=== PATIENT | female | born 1985 | race Caucasian/White ===

== ENCOUNTER → 2018-12-20 07:59 | Outpatient (CLI) | payer OTHER, SELFPAY ==
--- NOTE | 2018-12-20 08:02 | RAD_ITS ---
STUDY: HYSTEROSALPINGOGRAM. REASON FOR EXAM: Female, 33 years old. Infertility. FLUOROSCOPY TIME (if supplied): (1:50) minutes/seconds. 4 spot images were obtained. TECHNIQUE: The customs compliance analyst performed the hysterosalpingogram. COMPARISON: None. FINDINGS: There is evidence of filling of the venous structures within the pelvis. The fallopian tubes are not well opacified. Uterus is unremarkable. RAD/Salpingogram IMPRESSION: Limited study due to the filling of the venous structures as described. A repeat examination is recommended for further evaluation. Electronically Signed: Kam Brooke, at 15:45 EDT , Service support ,
== END ==
PROVIDERS: Family Provider Internal Medicine; PCP Internal Medicine; Referring Provider Obstetrics & Gynecology; Visit Provider Obstetrics & Gynecology
DX: N97.9 Female infertility, unspecified (principal)
CPT/HCPCS: 58340; 74740; Q9967

== ENCOUNTER → 2019-02-26 06:31 | Outpatient (CLI) | payer OTHER, SELFPAY ==
--- NOTE | 2019-02-26 06:43 | MRI_ITS ---
STUDY: MRI BRAIN WITH AND WITHOUT CONTRAST REASON FOR EXAM: Female, 33 years old. Facial pain, tinnitus TECHNIQUE: Standardized multiplanar fat and water weighted pulse sequences were obtained. 15 IV Dotarem was administered for the contrast portion of the examination. COMPARISON: None. FINDINGS: Normal size of the ventricles and extra-axial spaces for the patient's age. Normal white matter tracts of the supratentorial brain. There is no evidence for recent intracranial ischemia or other cause of cytotoxic edema on diffusion weighted imaging (DWI). Normal T2* images of the brain without demonstrated susceptibility artifact. There is no demonstrated hemosiderin stain. Normal bilateral basal ganglia. Normal thalami. There is no extra-axial fluid accumulation. Normal flow voids within the major intracranial circulation suggesting patency by spin echo criteria. Normal venous enhancement. There is no enhancing intra-axial or extra-axial abnormality. Normal sella turcica, pituitary gland, infundibular stalk, optic chiasm and hypothalamus. Normal tectal plate and pineal gland. Normal midbrain, kena and medulla. Normal cerebellum. Normal basal cisterns. Normal bilateral temporal bones. Normal bilateral internal auditory canals. No demonstrated orbital abnormality, within the constraints of a routine brain study. Mucous retention cyst in the posterior left maxilla sinus consistent with chronic sinusitis. Normal calvarium and skull base. Normal visualized soft tissue structures. Normal visualized upper cervical spine. MRI/Brain W/WO Contrast IMPRESSION: Normal unenhanced and enhanced MRI of the brain. Chronic left maxillary sinusitis with mucous retention cyst. Electronically Signed: Alverto Coreas MD at 8:46 EDT Tel , Service support ,
== END ==
PROVIDERS: Family Provider Internal Medicine; PCP Internal Medicine; Referring Provider Otolaryngology Otolaryngology/Facial Plastic Surgery; Visit Provider Otolaryngology Otolaryngology/Facial Plastic Surgery
DX: G50.1 Atypical facial pain (principal); H93.19 Tinnitus, unspecified ear
CPT/HCPCS: 70553; A9575

== ENCOUNTER → 2020-06-01 17:04 | Outpatient (CLI) | payer OTHER, SELFPAY | PROVIDERS: PCP Internal Medicine; Referring Provider Obstetrics & Gynecology; Visit Provider Obstetrics & Gynecology | DX: Z11.59 Encounter for screening for other viral diseases (principal) | CPT/HCPCS: 87635; C9803; U0003 ==

== ENCOUNTER 2020-06-06 18:30 | Inpatient (IN) | payer OTHER, SELFPAY ==
[2020-06-06] VITALS (26 sets, daily range): BP systolic 98–165; BP diastolic 54–84; PULSE 86–118; TEMP 36.4–37.7; O2SAT 98–100; BMI 29.9
[2020-06-06] MEDS: Lactated Ringers 1,000 ML 50 ML IV (19:35)
[2020-06-06 19:57] LABS: Absolute Lymphocyte Count 1.55 X10^3/uL (0.83-4.51); Absolute Neutrophil Count 10.5 X10^3/uL (2.0-7.7); Basophil# 0.02 X10^3/uL; Basophil% 0.2 % (0-1); Eosinophil# 0.04 X10^3/uL; Eosinophils% 0.3 % (0-5); Hematocrit 37.6 % (37-47); Hemoglobin 13.2 g/dL (12.0-15.0); Lymphocyte # 1.55 X10^3/ul (4.0); Lymphocyte % 11.8 % (19-41); Mean Corp Hgb Conc 35.1 g/dL (32-36); Mean Corpuscular Hgb 33.7 pg (27.0-32.0); Mean Corpuscular Volume 95.9 fL (81-99); Mean Platelet Vol. 10.4 fl (6.2-12.0); Monocyte# 0.94 X10^3/uL; Monocyte% 7.2 % (0-10); NRBC Flagged by Analyzer 0 % (0-5); Platelet Count 291 K/mm3 (150-450); RBC Distribution Width CV 12.1 % (11.6-14.6); RBC Distribution Width SD 41.8 fl (35.1-43.9); Red Blood Count 3.92 M/mm3 (4.2-5.4); White Blood Count 13.1 K/mm3 (4.4-11.0)
[2020-06-06] MEDS: Lactated Ringers 500 ML 999 ML IV (20:28)
[2020-06-06] MEDS: fentaNYL-bupivacaine (epidural) 100 ML BAG EPIDURAL (21:35)
[2020-06-07] VITALS (36 sets, daily range): BP systolic 94–137; BP diastolic 55–83; PULSE 79–110; RESP 14–16; TEMP 36.4–37.7; O2SAT 96–99
[2020-06-07] MEDS: Lactated Ringers 1,000 ML 200 ML IV ×2 (00:22→05:40)
[2020-06-07] MEDS: 0.9% Saline Lock 10 ML Syringe IV (01:09)
[2020-06-07] MEDS: Ondansetron 4 MG/2 ML Vial IV (01:09)
[2020-06-07] MEDS: Lactated Ringers 500 ML 999 ML IV ×2 (01:16→05:07)
[2020-06-07] MEDS: fentaNYL-bupivacaine (epidural) 100 ML BAG EPIDURAL ×2 (01:55→06:31)
--- NOTE | 2020-06-07 07:10 | HP.PCM_ITS ---
- Problem List (1) Post-dates Status: Acute (2) Active labor at term Status: Acute (3) History of infertility Status: Acute (4) Hypothyroidism Status: Acute (5) History of anxiety Status: Acute (6) Rh negative state in antepartum period Status: Acute History Date of Admission: 06/06/20 Final DONALD: 05/31/20 Final DONALD Source: US <20 weeks Gestational age: 41 Weeks and 0 Days History of this : This is a 34 year-old, G [1], P [0], at 41 weeks gestational age. Presented for induction of labor but was in active labor upon arrival. Allergies No Known Allergies Allergy (Verified 06/06/20 19:21) Home Medications: Home Medications Levothyroxine [Synthroid] 112 mcg PO DAILY 06/06/20 Vits [Prenatabs FA] 1 tab PO DAILY 06/06/20 Smoking Status: Never smoker Alcohol: None Number of Fetus(es): 1 NST - FHR Rate Baby A Baseline: 145 Variability:: Moderate Accelerations:: 15 x 15 Decelerations:: None FHR Category:: Category I Uterine Activity:: Irregular every 3-6, moderate to strong History Past Pregnancies: Past Pregnancies Delivery Date Name GA/ Weeks Outcome Route Wt Sex Labor Length Anesthesia Delivery Location Provider FOB Labs: Mom's Labs & Results 06/06/20 06/06/20 19:35 19:35 WBC 13.1 H RBC 3.92 L Hgb 13.2 Hct 37.6 MCV 95.9 MCH 33.7 H MCHC 35.1 RDW Std Deviation 41.8 RDW Coeff of Rosalino 12.1 Plt Count 291 MPV 10.4 Immature Gran % (Auto) 0.500 Neut % (Auto) 80.0 H Lymph % (Auto) 11.8 L [place] % (Auto) 7.2 Eos % (Auto) 0.3 Baso % (Auto) 0.2 Absolute Neuts (auto) 10.5 H Absolute Lymphs (auto) 1.55 Nucleated RBC % 0 Blood Type O NEGATIVE Antibody Screen NEGATIVE Course Did the patient receive Yes care? Labs Blood Type: O RH: NEGATIVE RPR/VDRL/Syphilis Nonreactive Rubella status Immune HbSAg Negative Date Done: 11/20/19 Chlamydia Negative Gonorrhea Negative HIV/AIDS Non-Reactive Group B Strep: Negative Current Obstetrical History Gestational Diabetes No Incompetent Cervix No Infertility Yes: letrozole PO IUGR No Macrosomia No Hypertension/Pre-eclampsia No Placenta Previa/Abruption No PTL/PROM No Uterine anomaly No Oligohydramnios No Polyhydramnios No Multiple gestation No Past Medical History Asthma No Diabetes No Hypertension No Heart disease No Mitral valve prolapse No Neurologic/Seizure disorder/ Yes: migraines Migraines Kidney disease No Liver disease No Varicosities No Clotting disorders/Hx of DVT No Thyroid Dysfunction Yes: autoimmune hoshimoto Other medical diseases Yes: PCOS Psychiatric disorders No Major trauma No Abnormal PAP smear No Sleep apnea No Mammogram in the last 2 years No Social History Marital Status: Alleged father Enrique Jefferson Hx Smoking No Smoking Status Never smoker How long have you used denies substances (years)? What date/time did you last N/A use any of the above? Have you had any previous N/A inpatient or outpatient treatment Review of Systems Constitutional: Denies: Chills, Fever, Weight Change HEENT: Denies: Head Aches, Sinus Congestion, Sinus Drainage Cardiovascular: Denies: Chest Pain, Palpitations Respiratory: Denies: Cough, Shortness of breath at rest, Sputum production Gastrointestinal: Denies: Abdominal Pain, Nausea, Vomiting Genitourinary: Denies: Dysuria Musculoskeletal: Denies: Joint Pain, Joint Tenderness Skin: Denies: Rash, Wounds Neurological: Denies: Numbness, Tingling, Focal weakness Psychiatric: Denies: Anxiety, Depression, Homicidal Ideations, Suicidal Ideations Hematologic/ Lymphatic: Denies: Easy Bruising, Easy Bleeding Physical Exam Vitals: Vital Signs Temp Pulse BP Pulse Ox 98.9 F 95 135/78 H 98 06/07/20 06:43 06/07/20 06:42 06/07/20 06:41 06/07/20 06:42 General: Alert, Oriented x3, Cooperative HEENT: Atraumatic, Normocephalic Cardiovascular: Regular rate, Regular Rhythm Lungs: Clear to auscultation Abdomen: Gravid Extremities:: No edema Neurological: Deep Tendon Reflexes 2+/4 and Symmetrical ICT HELP DESK TECHNICIAN: Normal external genitalia Estimated gestational size: Appropriate for gestational size Presentation: Cephalic Cervix Dilation (cm): 5 - IBOW per nursing Assessment/Plan All Active Problems Post-dates (Acute) Active labor at term (Acute) History of infertility (Acute) Hypothyroidism (Acute) History of anxiety (Acute) Rh negative state in antepartum period (Acute) This is a 34 year-old, G [1], P [0], at 41 weeks gestational age. A:Active Labor P: 1) Admit to labor and delivery 2) IV and routine labs 3) Epidural for pain management 4) notified of patient status 5) GBS negative
--- NOTE | 2020-06-07 07:14 | PCM.PN.OB ---
Patient Problems: Active and Suspected Problems Post-dates (Acute) Active labor at term (Acute) History of infertility (Acute) Hypothyroidism (Acute) History of anxiety (Acute) Rh negative state in antepartum period (Acute) Subjective: Comfortable with epidural. Called by nursing staff for late prolonged decelerations with pushing. Repositioned to hands and knees and baby tolerated well. Objective: 135, moderate, variable and late decels, Category 2 with pushing. TOCO:every 3-4 minutes, strong Complete, +2 Pushing on hands and knees and left side, tolerance improved. - Physical Exam Vitals/I&O's: Vital Signs Temp Pulse BP Pulse Ox 98.9 F 95 135/78 H 98 06/07/20 06:43 06/07/20 06:42 06/07/20 06:41 06/07/20 06:42 Weight: 203 lb 0.012 oz Body Mass Index (BMI) 29.9 Intake and Output for Last 24 Hours 06/05/20 06/06/20 06/07/20 23:59 23:59 23:59 Intake Total 543.67 / 543.67 2879.76 / 2879.76 Output Total 50 / 50 650 / 650 Balance 493.67 / 493.67 2229.76 / 2229.76 Laboratory Results 06/06/20 19:35: WBC 13.1 H, RBC 3.92 L, Hgb 13.2, Hct 37.6, MCV 95.9, MCH 33.7 H, MCHC 35.1, RDW Std Deviation 41.8, RDW Coeff of Rosalino 12.1, Plt Count 291, MPV 10.4, Immature Gran % (Auto) 0.500, Neut % (Auto) 80.0 H, Lymph % (Auto) 11.8 L, [place] % (Auto) 7.2, Eos % (Auto) 0.3, Baso % (Auto) 0.2, Absolute Neuts (auto) 10.5 H, Absolute Lymphs (auto) 1.55, Nucleated RBC % 0 06/06/20 19:35: Blood Type O NEGATIVE, Antibody Screen NEGATIVE Current Medications Acetaminophen (Tylenol) 325 - 650 mg PO Q4H PRN PRN PRN Reason: Pain Score 1-3/10 Al Hydroxide/Mg Hydroxide (Mylanta Ii) 15 - 30 ml PO Q4H PRN PRN PRN Reason: INDIGESTION Citric Acid/Sodium Citrate (Bicitra) 30 ml PO X1 PRN PRN Reason: Section Ephedrine Sulfate () 10 mg IV Q10M PRN PRN Reason: hypotension Ephedrine Sulfate () 10 mg IM Q30M PRN PRN Reason: hypotension Fentanyl Citrate (Sublimaze (100mcg Ampule)) 25 - 50 mcg IV Q2H PRN PRN PRN Reason: Pain Score 4-10/10 Fentanyl/Bupivacaine/Sodium Chlor () 0 ml EPIDURAL UD AVEL; Protocol Last Admin: 06/07/20 06:31 Dose: 100 ml Documented by: Lactated Ringer's () 500 mls @ 999 mls/hr IV .Q31M PRN PRN Reason: Epidural Last Infusion: 06/06/20 20:58 Dose: Infused Documented by: Lactated Ringer's () 500 mls @ 999 mls/hr IV .Q31M PRN PRN Reason: Corrective Measures Last Infusion: 06/07/20 05:38 Dose: Infused Documented by: Lactated Ringer's () 1,000 mls @ 50 mls/hr IV .Q20H AVEL Last Infusion: 06/07/20 06:24 Dose: 200 mls/hr Documented by: Naloxone HCl 4 mg/ Dextrose 504 mls @ 0 mls/hr IV .Q0M PRN; Protocol PRN Reason: To maintain Resp. rate >10 Nalbuphine HCl (Nubain) 5 mg IV Q3H PRN PRN PRN Reason: ITCHING Naloxone HCl (Narcan) 0.02 mg IV Q1M PRN PRN Reason: RR< 10 AND PT UNRESPONSIVE Ondansetron HCl (Zofran) 4 mg IV Q4H PRN PRN PRN Reason: NAUSEA Last Admin: 06/07/20 01:09 Dose: 4 mg Documented by: Prochlorperazine Edisylate (Compazine Iv) 10 mg IV Q6H PRN PRN PRN Reason: NAUSEA Sodium Chloride () 10 - 40 ml IV X1 PRN PRN Reason: SALINE FLUSH Last Admin: 06/07/20 01:09 Dose: 10 ml Documented by: Medical Necessity - Tobacco Use Smoking Status: Never smoker Assessment/Plan All Active Problems Post-dates (Acute) Active labor at term (Acute) History of infertility (Acute) Hypothyroidism (Acute) History of anxiety (Acute) Rh negative state in antepartum period (Acute) A:Active labor, second stage Category 2 FHT P: notified of heart rate decelerations and current patient status. Will assist with pushing and determine descent and patient progress.
[2020-06-07] MEDS: Oxytocin 30 units/NS 500 ml 30 UNITS/500 ML IV.SOLN 334 UNITS IV (09:20)
--- NOTE | 2020-06-07 09:36 | PCM.OPRPT ---
Vaginal Delivery Maternal Presentation: Active Labor Amniotic Membrane Rupture Type: Artificial Amniotic Fluid Description: Clear Final DONALD: 05/31/20 Final DONALD Source: US <20 weeks Gestational age: 41 Weeks and 0 Days Date of Procedure: 06/07/20 Pre-Operative Diagnosis: term gestation active labor Post-Operative Diagnosis: same, live female at 0916 Surgery/ Procedure Performed: Vacuum Assisted Vaginal Delivery Type of Anesthesia: Epidural Description of Procedure: pt pushing on and off for over 3.5hours, fetus with decelerations with pushing. discussed with patient and set up for vacuum assisted delivery- risks were reviewed. VE: able to see approximately 2cm head with pushing- vacuum applied at 550mmhg at flexion point. head was brought to perineum with two pulls and one pop off small RML was made for delivery of head- vacuum remained off and patient was able to push well for delivery of head followed by infants shoulders. was placed on maternal chest for immediate skin to skin- vigorous at delivery. RML was repaired with 2-0 vicryl and 3-0 rapide. gasses unable to be collected. placenta delivered without difficulty and intact. Presentation: Vertex Placental Delivery Description: Spontaneous Placenta Disposition: [facility] Cord Vessel Description: 3 Vessels Cord Entanglement: None Drain: Hunt to straight drain Estimated Blood Loss: 200 Infant A gender: Female (1 minute): 8 (5 minute): 9 Episiotomy Description: Right Mediolateral, 2nd degree Laceration: None Medications given after delivery: IV Pitocin Complications: None
[2020-06-07] MEDS: Levothyroxine 112 MCG Tablet PO (10:53)
[2020-06-07] MEDS: Ibuprofen 600 MG Tablet PO ×2 (10:53→16:58)
[2020-06-07] MEDS: Acetaminophen 500 MG Tablet 1000 MG PO (20:55)
[2020-06-08] VITALS (7 sets, daily range): BP systolic 120–132; BP diastolic 69–79; PULSE 73–85; RESP 16–18; TEMP 36.6–36.9; O2SAT 98
[2020-06-08] MEDS: Levothyroxine 112 MCG Tablet 224 MCG PO (06:18)
[2020-06-08] MEDS: Ibuprofen 600 MG Tablet PO ×2 (08:41→22:59)
--- NOTE | 2020-06-08 08:48 | PCM.PN.OB ---
Patient Problems: Active and Suspected Problems Post-dates (Acute) Active labor at term (Acute) History of infertility (Acute) Hypothyroidism (Acute) History of anxiety (Acute) Rh negative state in antepartum period (Acute) Subjective: Feels well but is struggling with - Physical Exam Vitals/I&O's: Vital Signs Temp Pulse Resp BP Pulse Ox 98.1 F 85 16 131/75 H 98 06/08/20 08:19 06/08/20 08:19 06/08/20 08:19 06/08/20 08:19 06/08/20 04:18 Oxygen Delivery Method Room Air Weight: 203 lb 0.012 oz Body Mass Index (BMI) 29.9 Intake and Output for Last 24 Hours 06/06/20 06/07/20 06/08/20 23:59 23:59 23:59 Intake Total 543.67 / 543.67 3966.43 / 3966.43 Output Total 50 / 50 2650 / 2650 Balance 493.67 / 493.67 1316.43 / 1316.43 General: Alert, Oriented x3 Abdomen: Soft, Non Tender, Non-Distended - ff mid & below umb Extremities: No Calf Tenderness Laboratory Results 06/07/20 13:00: Screen NEGATIVE, Baby's Blood Type B POSITIVE, Baby's SALAZAR NEGATIVE Current Medications Acetaminophen (Tylenol) 1,000 mg PO Q8H PRN PRN PRN Reason: Pain Score 1-3/10 Last Admin: 06/07/20 20:55 Dose: 1,000 mg Documented by: Bisacodyl (Dulcolax) 10 mg RECTAL UD PRN PRN Reason: If no BM Dibucaine (Dibucaine) 1 applic TOPICAL TID PRN PRN; Protocol PRN Reason: Discomfort Hydrocortisone (Hytone) 1 applic TOPICAL TID PRN PRN; Protocol PRN Reason: Discomfort Ibuprofen (Motrin) 600 mg PO Q6H PRN PRN PRN Reason: Pain Score 1-3/10 Last Admin: 06/08/20 08:41 Dose: 600 mg Documented by: Levothyroxine Sodium (Synthroid) 112 mcg PO SuMoWeFr@0600 [facility] Last Admin: 06/07/20 10:53 Dose: 112 mcg Documented by: Levothyroxine Sodium (Synthroid) 224 mcg PO TuThSa@0600 [facility] Last Admin: 06/08/20 06:18 Dose: 224 mcg Documented by: Methylergonovine Maleate (Methergine) 0.2 mg IM X1 PRN PRN Reason: Excess bleeding/uterine atony Ondansetron HCl (Zofran) 4 mg IV Q4H PRN PRN PRN Reason: Nausea Oxycodone HCl (Oxyir) 5 - 10 mg PO Q4H PRN PRN PRN Reason: Pain Score 4-10/10 Senna/Docusate Sodium (Senokot-S, Jessica-Colace) 1 - 2 tablet PO DAILY PRN PRN PRN Reason: Constipation Simethicone (Mylicon) 80 mg PO PCHS PRN PRN Reason: Indigestion/Stomach pain Sodium Chloride () 5 - 15 ml IV UD PRN PRN Reason: SALINE FLUSH Medical Necessity - Tobacco Use Smoking Status: Never smoker Assessment/Plan All Active Problems Post-dates (Acute) Active labor at term (Acute) History of infertility (Acute) Hypothyroidism (Acute) History of anxiety (Acute) Rh negative state in antepartum period (Acute) PPD#1 Routine care Encouraged and patient will work with today Possible d/c home later today
--- NOTE | 2020-06-08 08:49 | DCINST_ITS ---
Discharge Diet: No Restrictions Discharge Activity: May Drive, May Shower May resume sexual activity in: 6 weeks Weight Bearing Status: Weight bearing as tolerated Additional Instructions: If you experience any of the following, contact your healthcare provider. * Bleeding that soaks a pad every hour for 2 hours * Fever 100.4 or higher * Unrelieved incision or abdominal pain * Swelling, redness, discharge or bleeding from your incision or episiotomy site * Your incision begins to separate * Problems urinating (including inability to urinate or burning while urinating). * Visual changes * Severe headache * Flu-like symptoms * Pain or redness in one of both of your breasts * Pain, warmth, tenderness or swelling in your legs, especially the calf area * Frequent nausea and vomiting * Symptoms of depression or anxiety If you experience any of the following, call 911 or go to the nearest Emergency Room. * Chest pain * Problems breathing * Seizure activity * Partial or complete paralysis of a body part, slurred speech, weakness or drooping of the face, or a sudden inability to walk or hold your balance Allergies/Adverse Reactions: Allergies No Known Allergies Allergy (Verified 06/06/20 19:21) Medications to take at Discharge Levothyroxine [Synthroid] 112 mcg PO DAILY 06/06/20 Vits [Prenatabs FA ] 1 tab PO DAILY 06/06/20 Acetaminophen [Tylenol] 1,000 mg PO Q8H PRN PRN tab 06/08/20 Ibuprofen [Motrin] 600 mg PO Q6H PRN PRN tab 06/08/20 Primary Care Physician: Danika Leal MD [Primary Care Provider] - Test Results: Test results from this visit will be discussed in further detail at your follow- up appointment, if applicable.
--- NOTE | 2020-06-08 08:49 | PCM.DCVAG ---
Discharge Diet: No Restrictions Discharge Activity: May Drive, May Shower May resume sexual activity in: 6 weeks Weight Bearing Status: Weight bearing as tolerated Additional Instructions: If you experience any of the following, contact your healthcare provider. Bleeding that soaks a pad every hour for 2 hours Fever 100.4 or higher Unrelieved incision or abdominal pain Swelling, redness, discharge or bleeding from your incision or episiotomy site Your incision begins to separate Problems urinating (including inability to urinate or burning while urinating). Visual changes Severe headache Flu-like symptoms Pain or redness in one of both of your breasts Pain, warmth, tenderness or swelling in your legs, especially the calf area Frequent nausea and vomiting Symptoms of depression or anxiety If you experience any of the following, call 911 or go to the nearest Emergency Room. Chest pain Problems breathing Seizure activity Partial or complete paralysis of a body part, slurred speech, weakness or drooping of the face, or a sudden inability to walk or hold your balance Allergies/Adverse Reactions: Allergies No Known Allergies Allergy (Verified 06/06/20 19:21) Medications to take at Discharge Levothyroxine [Synthroid] 112 mcg PO DAILY 06/06/20 Vits [Prenatabs FA ] 1 tab PO DAILY 06/06/20 Acetaminophen [Tylenol] 1,000 mg PO Q8H PRN PRN tab 06/08/20 Ibuprofen [Motrin] 600 mg PO Q6H PRN PRN tab 06/08/20 Primary Care Physician: Danika Leal MD [Primary Care Provider] - Test Results: Test results from this visit will be discussed in further detail at your follow-up appointment, if applicable.
[2020-06-09] VITALS (9 sets, daily range): BP systolic 115–131; BP diastolic 67–80; PULSE 66–80; RESP 16–18; TEMP 36.6–37.1; O2SAT 99
[2020-06-09] MEDS: Levothyroxine 112 MCG Tablet PO (07:13)
--- NOTE | 2020-06-09 08:54 | PN.OBGYN_ITS ---
Patient Problems: Active and Suspected Problems Post-dates (Acute) Active labor at term (Acute) History of infertility (Acute) Hypothyroidism (Acute) History of anxiety (Acute) Rh negative state in antepartum period (Acute) Subjective: pain well controlled, average lochia, + Bm. - Physical Exam Vitals/I&O's: Vital Signs Temp Pulse Resp BP Pulse Ox 98.7 F 73 16 115/67 98 06/09/20 02:00 06/09/20 02:00 06/09/20 02:00 06/09/20 02:00 06/08/20 20:05 Oxygen Delivery Method Room Air Weight: 92.08 kg Body Mass Index (BMI) 29.9 Intake and Output for Last 24 Hours 06/07/20 06/08/20 06/09/20 23:59 23:59 23:59 Intake Total 3966.43 / 3966.43 Output Total 2650 / 2650 Balance 1316.43 / 1316.43 General: Alert, Cooperative, No apparent distress Current Medications Acetaminophen (Tylenol) 1,000 mg PO Q8H PRN PRN PRN Reason: Pain Score 1-3/10 Last Admin: 06/07/20 20:55 Dose: 1,000 mg Documented by: Bisacodyl (Dulcolax) 10 mg RECTAL UD PRN PRN Reason: If no BM Dibucaine (Dibucaine) 1 applic TOPICAL TID PRN PRN; Protocol PRN Reason: Discomfort Hydrocortisone (Hytone) 1 applic TOPICAL TID PRN PRN; Protocol PRN Reason: Discomfort Ibuprofen (Motrin) 600 mg PO Q6H PRN PRN PRN Reason: Pain Score 1-3/10 Last Admin: 06/08/20 22:59 Dose: 600 mg Documented by: Levothyroxine Sodium (Synthroid) 112 mcg PO SuMoWeFr@0600 [facility] Last Admin: 06/09/20 07:13 Dose: 112 mcg Documented by: Levothyroxine Sodium (Synthroid) 224 mcg PO TuThSa@0600 [facility] Last Admin: 06/08/20 06:18 Dose: 224 mcg Documented by: Methylergonovine Maleate (Methergine) 0.2 mg IM X1 PRN PRN Reason: Excess bleeding/uterine atony Ondansetron HCl (Zofran) 4 mg IV Q4H PRN PRN PRN Reason: Nausea Oxycodone HCl (Oxyir) 5 - 10 mg PO Q4H PRN PRN PRN Reason: Pain Score 4-10/10 Senna/Docusate Sodium (Senokot-S, Jessica-Colace) 1 - 2 tablet PO DAILY PRN PRN PRN Reason: Constipation Simethicone (Mylicon) 80 mg PO PCHS PRN PRN Reason: Indigestion/Stomach pain Sodium Chloride () 5 - 15 ml IV UD PRN PRN Reason: SALINE FLUSH Medical Necessity - Tobacco Use Smoking Status: Never smoker Assessment/Plan All Active Problems Post-dates (Acute) Active labor at term (Acute) History of infertility (Acute) Hypothyroidism (Acute) History of anxiety (Acute) Rh negative state in antepartum period (Acute) PPD#2 s/p vacuum assisted vaginal delivery doing well infant , some jaundice, under bili lights d/c home later today or to hot depending on plan per peds
[2020-06-09] MEDS: Ibuprofen 600 MG Tablet PO ×2 (12:47→19:47)
== END 2020-06-09 19:54 | disposition home or self-care (01) | DRG 807 ==
PROVIDERS: Obstetrics & Gynecology; Admitting Provider Obstetrics & Gynecology; PCP Internal Medicine; Referring Provider Obstetrics & Gynecology; Visit Provider Obstetrics & Gynecology
DX: O76 Abnormality in fetal heart rate and rhythm complicating labor and delivery (principal); Z37.0 Single live birth; O48.0 Post-term pregnancy; O99.284 Endocrine, nutritional and metabolic diseases complicating childbirth; E03.9 Hypothyroidism, unspecified; G89.29 Other chronic pain; M54.9 Dorsalgia, unspecified; Z67.91 Unspecified blood type, Rh negative; Z79.890 Hormone replacement therapy; Z3A.41 41 weeks gestation of pregnancy
CPT/HCPCS: 59025; 59050; 85025; 85461; 86850; 86900; 86901; 90384; 99218; J7120; A4216; G0378; J2405; J2790

== ENCOUNTER 2022-10-10 07:03 | Inpatient (IN) | payer BC, SELFPAY ==
[2022-10-10] VITALS (37 sets, daily range): BP systolic 99–132; BP diastolic 50–73; PULSE 78–104; RESP 18; TEMP 36.5–36.8; O2SAT 97–100; BMI 30.5
[2022-10-10] MEDS: Lactated Ringers 1,000 ML 50 ML IV (07:30)
[2022-10-10 07:59] LABS: Absolute Lymphocyte Count 2.06 X10^3/uL (0.83-4.51); Absolute Neutrophil Count 5.7 X10^3/uL (2.0-7.7); Basophil# 0.02 X10^3/uL; Basophil% 0.2 % (0-1); Eosinophil# 0.13 X10^3/uL; Eosinophils% 1.5 % (0-5); Hematocrit 40.2 % (37-47); Hemoglobin 13.7 g/dL (12.0-15.0); Lymphocyte # 2.06 X10^3/ul (0.83-4.51); Lymphocyte % 24.3 % (19-41); Mean Corp Hgb Conc 34.1 g/dL (32-36); Mean Corpuscular Hgb 32.5 pg (27.0-32.0); Mean Corpuscular Volume 95.3 fL (81-99); Mean Platelet Vol. 9.5 fl (6.2-12.0); Monocyte# 0.55 X10^3/uL; Monocyte% 6.5 % (0-10); NRBC Flagged by Analyzer 0 % (0-5); Neutrophil # 5.69 X10^3/uL (2.7-7.7); Platelet Count 275 K/mm3 (150-450); RBC Distribution Width CV 12.7 % (11.6-14.6); RBC Distribution Width SD 43.6 fl (35.1-43.9); Red Blood Count 4.22 M/mm3 (4.2-5.4); White Blood Count 8.5 K/mm3 (4.4-11.0)
[2022-10-10] MEDS: Oxytocin 15 Units/NS 250ml 15 UNITS/250 ML IV.SOLN 2 UNITS IV (08:09)
--- NOTE | 2022-10-10 08:26 | HP.PCM.OB_ITS ---
HPI - General General Date of Admission: 10/10/22 HPI Narrative CHARLES JAMESON, is a 37 F at 40.5 weeks gestation who presents for an elective induction of labor. has been complicated by hypothyroidism, AMA, RH negative, History of anxiety and depression. History of infertility and utilized letrozole for conception. Maternal Data Information DONALD Calculator Estimated Delivery Date Method Current WG Current Estimate 10/05/22 Manual 40w 5d PFSH PFSH Medical History (Updated 10/10/22 @ 08:31 by No Kaur CNM) Anxiety Headache Infertility PCOS (polycystic ovarian syndrome) Thyroid disorder Home Medications levothyroxine 112 mcg tablet 200 mcg PO DAILY hypothyroidism 06/06/20 [History Last Taken 10/10/22 06:00] vits,calcium no.78-iron fumarate-folic acid 29 mg-1 mg tablet 1 tab PO DAILY 06/06/20 [History Last Taken 10/10/22 06:00] cholecalciferol (vitamin D3) 25 mcg (1,000 unit) capsule (Vitamin D3) 25 mcg PO DAILY vitamin 10/10/22 [History Last Taken 10/10/22 06:00] Allergy/AdvReac Type Severity Reaction Status Date / Time No Known Allergies Allergy Verified 10/10/22 07:23 Surgical History (Updated 10/10/22 @ 08:31 by No Kaur CNM) H/O wisdom tooth extraction Social History Smoking Status: Never smoker History Elective abortions Hx Para 1 Spontaneous abortions Hx # Term Pregnancies Ectopic pregnancies Hx # Pregnancies Multiple births # of living children Visit Details OB Flowsheet Initial Weight: Not Recorded Date -?-?-?-?-?-?-?-?-?-?-?-?- EGA Weight BP Urine Prot -?-?-?-?-?-?-?-?-?-?-?-?- Glucose FHR FuHt Pres Dilation -?-?-?-?-?-?-?-?-?-?-?-?- Effaced St Visit Note 10/10/22 -?-?-?-?-?-?-?-?-?-?-?-?- 40w 5d 206 lb 12.697 oz 125/73 -?-?-?-?-?-?-?-?-?-?-?-?- -?-?-?-?-?-?-?--?-?-?-?-?- NST FHR Rate Baby A Baseline: 140 Variability:: Moderate Accelerations:: 15 x 15 Decelerations:: None NST Reactive:: Yes FHR Category:: Category I Uterine Activity:: irregular ROS Eyes Eyes: Denies blurry vision, change in vision or spots in vision ENT HEENT: Denies dizziness or headache(s) Cardiovascular Cardiovascular: Denies abdominal pain, chest pain or dyspnea Respiratory/Chest Respiratory/Chest: Denies cough, dyspnea, shortness of breath at rest or shortness of breath with exertion Gastrointestinal Gastrointestinal: Denies abdominal pain, diarrhea or vomiting Genitourinary Genitourinary: Denies change in urinary stream, difficulty urinating or dysuria Musculoskeletal Musculoskeletal: Reports none Integumentary Integumentary: Denies rash Neurologic Neurologic: Denies dizziness, headache(s), memory loss or weakness Psychiatric Psychiatric: Reports none Vital Signs Vital Signs Vital Signs: 10/10/22 07:44 10/10/22 07:44 10/10/22 07:44 Temperature Temperature Source Pulse Rate 90 Blood Pressure 125/73 H BP Systolic 125 BP Diastolic 73 Pulse Ox 98 10/10/22 07:44 10/10/22 07:44 Temperature 97.7 F L Temperature Source Temporal Pulse Rate Blood Pressure BP Systolic BP Diastolic Pulse Ox Weight Weight: 206 lb 12.697 oz Body Mass Index (BMI) 30.5 Physical Exam Const alert, oriented x3 and no apparent distress General Appearance: cooperative Orientation / Consciousness: awake Exam Limitations: no limitations HEENT normocephalic Head and Scalp: normal to inspection Eyes General Eye: normal appearance of both eyes Neck full ROM and no lymphadenopathy Lymph Lymphatic: no lymphadenopathy noted Chest inspection of chest normal Resp normal respiratory effort, normal air movement and clear to auscultation bilaterally Effort and Inspection: able to speak in complete sentences and symmetric chest movement Cardio regular rate and regular rhythm GI normal to inspection, nondistended, normoactive bowel sounds Manual OB Exam: presentation cephalic Back/Spine normal ROM Extremity full ROM and no calf tenderness Skin no rashes or lesions noted General Skin Exam: no breakdown Neuro oriented x3 and CN's II-XII intact bilaterally Psych mental status grossly normal and thought process normal Labs Labs Labs: Blood Type O NEGATIVE Antibody Screen NEGATIVE Hct 40.2 % (37-47) Hgb 13.7 g/dL (12.0-15.0) Rhogam given: Yes Assessment & Plan (1) History of infertility: (2) Hypothyroidism: (3) History of anxiety: (4) Rh negative state in antepartum period: (5) 40 weeks gestation of : (6) Encounter for induction of labor: (7) Anxiety: (8) History of vacuum extraction assisted delivery: PLAN: Plan Admit to labor and delivery Start IV and run fluids per orders GBS negative CE /-2 Start Pitocin 2 mu/min and increase per policy Pain medications when indicated Anticipate Dr. Peralta notified of admission and is collaborating physicain
[2022-10-10] MEDS: LACTATED RINGERS 500 ML 999 ML IV (11:20)
[2022-10-10] MEDS: fentaNYL-bupivacaine (epidural) 100 ML BAG EPIDURAL ×2 (12:14→16:54)
[2022-10-10] MEDS: Ondansetron 4 MG/2 ML Vial IV (15:52)
[2022-10-10] MEDS: Lactated Ringers 1,000 ML 200 ML IV (15:54)
--- NOTE | 2022-10-10 17:43 | PCM.PN.BLA ---
Progress Note Patient comfortable with epidural. Continues with position changes with assistance from nursing. Assessment & Plan Assessment/Plan (1) 40 weeks gestation of : (2) Encounter for induction of labor: PLAN: Plan CE- /- Pitocin 12 mu/min- continue to increase as needed per policy Cat. 1 tracing, NST reactive Anticipate
--- NOTE | 2022-10-10 20:00 | EX.PCM.OBRPT ---
Assessment & Plan (1) (spontaneous vaginal delivery): (2) Laceration, obstetrical, second degree: (3) Care and examination of lactating mother: Maternal Data Information DONALD Calculator Estimated Delivery Date Method Current WG Current Estimate 10/05/22 Manual 40w 5d Vaginal Delivery Maternal Presentation Maternal Presentation: Elective Induction Maternal Presentation: at 40.5 weeks gestation for elective induction. Type of Induction: Pitocin and Amniotomy Operative Information Pre-Operative Diagnosis: Term gestation, Induction of labor Post-Operative Diagnosis: Spontaneous vaginal delivery, Live term male Surgery / Procedure Performed: Spontaneous Vaginal Delivery Type of Anesthesia: Epidural Drain: Hunt to straight drain Estimated Blood Loss: 350 Time of Delivery: 19:34 Findings Description of Procedure: Patient found to be complete dilation and at +1 station. Provided bedside support during pushing. With maternal effort, head delivered followed immediately by anterior shoulder and remainder of infant body without downward traction. Delivered through loose nuchal cord around neck and body. Vigorous male placed on maternal abdomen and was attended to by nursing staff. 3 vessel cord was clamped and cut by FOB after 3 minute delay. Cord blood collected. Infant placed immediately skin to skin with patient. Pitocin IV started for active management of the third stage of labor. Placenta delivered spontaneously and intact. Second degree laceration repaired in usual fashion using Vicryl 3-0 Rapid. Hemostasis obtained. Fundus firm 2 below U. EBL 350 cc. APGARS 9/9. Patient and bonding well at this time. Dr. Peralta notified of delivery. Presentation: Vertex Amniotic Membrane Rupture Type: Artificial Time of Membrane Rupture: 1229 Amniotic Fluid Description: Clear Placental Delivery Description: Spontaneous Cord Vessel Description: 3 Vessels Cord Entanglement: Around neck x 1, loose (Around body x 1 loose) Nuchal Cord Compression: Without compression A Gender: Male (1 minute): 9 (5 minute): 9 Delayed Cord Clamping: Yes Post Vaginal Delivery Medications Given After Delivery: IV Pitocin Episiotomy Description: None Laceration: 2nd degree Complication Complications: None
[2022-10-10] MEDS: 0.9% Saline Lock 10 ML Syringe IV (20:07)
[2022-10-10] MEDS: Naproxen 500 MG Tablet PO (20:34)
[2022-10-10] MEDS: Acetaminophen 500 MG Tablet 1000 MG PO (21:09)
[2022-10-11 05:04] VITALS: BP 109/67; PULSE 80; RESP 18
[2022-10-11] MEDS: Naproxen 500 MG Tablet PO (05:34)
--- NOTE | 2022-10-11 07:22 | PN.OBGYN_ITS ---
Subjective Subjective Patient seen at bedside. Resting comfortably. Has voided without difficulty. Cramping with . Denies headache, dizziness, SOB or CP Desires discharge home later tonight. Objective Data Objective Data Vital Signs: Vital Signs Temp Pulse Resp BP Pulse Ox O2 Del Method 98.2 F 80 18 109/67 98 Room Air 10/10/22 21:56 10/11/22 05:04 10/11/22 05:04 10/11/22 05:04 10/10/22 21:56 10/11/22 05:04 Oxygen Delivery Method Room Air Weight: 206 lb 12.697 oz Body Mass Index (BMI) 30.5 Intake & Output: Intake and Output for Last 24 Hours 10/09/22 10/10/22 10/11/22 23:59 23:59 23:59 Intake Total 2528.80 / 2528.80 Output Total 1250 / 1250 Balance 1278.80 / 1278.80 Lab / Micro Data Attestation: I reviewed the patient's lab results. Result Diagrams: 10/10/22 07:30 Labs: Laboratory Results - last 24 hr 10/10/22 07:30: WBC 8.5, RBC 4.22, Hgb 13.7, Hct 40.2, MCV 95.3, MCH 32.5 H, MCHC 34.1, RDW Std Deviation 43.6, RDW Coeff of Rosalino 12.7, Plt Count 275, MPV 9.5, Immature Gran % (Auto) 0.500, Neut % (Auto) 67.0, Lymph % (Auto) 24.3, Aurora % (Auto) 6.5, Eos % (Auto) 1.5, Baso % (Auto) 0.2, Absolute Neuts (auto) 5.7, Absolute Lymphs (auto) 2.06, Nucleated RBC % 0 10/10/22 07:30: Blood Type O NEGATIVE, Antibody Screen NEGATIVE 10/10/22 21:48: Screen NEGATIVE, Baby's Blood Type B POSITIVE, Baby's SALAZAR NEGATIVE ROS Eyes Eyes: Denies blurry vision, change in vision or spots in vision ENT HEENT: Denies dizziness or headache(s) Cardiovascular Cardiovascular: Denies abdominal pain, chest pain or dyspnea Respiratory/Chest Respiratory/Chest: Denies cough, dyspnea, shortness of breath at rest or shortne ss of breath with exertion Gastrointestinal Gastrointestinal: Denies abdominal pain, diarrhea or vomiting Genitourinary Genitourinary: Denies change in urinary stream, difficulty urinating or dysuria Musculoskeletal Musculoskeletal: Reports none Integumentary Integumentary: Denies rash Neurologic Neurologic: Denies dizziness, headache(s), memory loss or weakness Physical Exam Const alert and no apparent distress General Appearance: cooperative and comfortable Exam Limitations: no limitations HEENT normocephalic Eyes General Eye: normal appearance of both eyes Neck full ROM General: normal visual inspection Chest Chest: symmetrical chest wall rise Resp normal respiratory effort and normal air movement Effort and Inspection: symmetric chest movement Auscultation: clear to auscultation bilaterally Cardio regular rate and regular rhythm GI normal to inspection, nondistended, normoactive bowel sounds Back/Spine normal ROM Extremity full ROM and no calf tenderness General Extremity: normal exam except as noted Skin no rashes or lesions noted Neuro CN's II-XII intact bilaterally Psych mental status grossly normal Assessment & Plan (1) Care and examination of lactating mother: (2) Laceration, obstetrical, second degree: (3) (spontaneous vaginal delivery): PLAN: Plan PPD 1 Routine care Ice to perineum Breast feeding support Pain control D/C home tonight with follow up in office
--- NOTE | 2022-10-11 07:28 | DCINST_ITS ---
Discharge Instructions Diet Discharge Diet: No restrictions Activity Discharge Activity: Return to Normal Activity, May Shower and May Take a Tub Bath May resume sexual activity in: 4-6 weeks Weight Bearing Status: Weight bearing as tolerated Dressing / Incision Call your doctor if you observe: Inability to urinate, Using more than 1 pad per hour, Shortness of breath, Dizziness, Swelling in the ankles, Chest pain, Calf discomfort and Uncontrolled pain Follow Up Care When: Within 10 days Test Results: Test results from this visit will be discussed in further detail at your follow- up appointment, if applicable. Discharge Plan Admission Admit Date/Time: 10/10/22 07:03 Primary Reason for Your Visit: Labor and Delivery Attending Provider: No Kaur Primary Care Provider: Danika Leal Discharge Orders/Prescriptions Prescriptions: Continued levothyroxine 112 MCG tablet 200 mcg PO DAILY vit,[id number] 1 TABLET tablet 1 tab PO DAILY cholecalciferol (vitamin D3) [Vitamin D3] 25 mcg (1,000 unit) Capsule 25 mcg PO DAILY Referrals / Follow Up: Danika Leal MD [Primary Care Provider] - Disposition Disposition (needs filled in before D/C Order can be placed): Home, Self Care
[2022-10-11 09:03] VITALS: BP 112/73; PULSE 89; RESP 14; TEMP 36.7; O2SAT 97
[2022-10-11 12:26] VITALS: BP 98/57; PULSE 67; RESP 14; TEMP 36.7; O2SAT 100
[2022-10-11 15:44] VITALS: BP 105/56; PULSE 79; RESP 14; TEMP 36.9; O2SAT 98
--- NOTE | 2022-10-11 19:44 | CASEMGMT ---
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 She reports no concern regarding the MOB and nb. SW met with MOB and introduced self. MOB agreed to be interviewed in the presence of the FOB. MOB was holding the nb and breast feeding. MOB appeared to be appropriately bonding with the nb. Mom: Garth Gutierres PNC: [facility] Control: Vasectomy Baby: Patrick Taveras : 10/10/[birth year] Apgars: 9/9 Weight: 8 lbs 8 ounces Instruction Dean: Shruti OLIVEIRA report that is going well. She may supplement with formula. MOB' other children: Giuliana (Mary Lou) who is 2 years and 4 months old. FOB?s parents are watching her while the MOB/FOB are in the hospital. Housing: MOB and FOB reside in a house with now their child. Adequate space. Transportation: TEE reports she has access to car and is able to drive. Access to transportation. Supplies: ?TEE reports nb has a carseat, bassinette, crib, diapers and clothes. Support: TEE reports that her supports are the FOB?s parents who reside in [place] and friends and colleagues from her work at the [employer]. TEE said that her friends are making a food train for patient. Education Level: TEE graduated from high school, college and has a master?s degree. No learning issues or delays. 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 TEE reports her boss is very supportive of work/family balance. TEE said that she will have 12 weeks off work and then return to work for 6 weeks and have the months of February and March off (as she does not work in February/March). TEE said that when she goes to work her children will both go to [employer]. Agency Involvement: TEE reports no JFS, WIC, HMG, Legal or CSB issues. TEE said that she sees a counselor at [facility] one time a month ?around this time?. TEE said that she does not have an upcoming appointment scheduled due to her delivery. TEE said that she started going to counseling as she was , there was COVID, their dog suddenly and then her grandmother . TEE said that her counselor has helped her with other life issues since then and MOB sees her counselor as a support. FOB: Enrique Time Together: ?MOB and FOMatt have been together since 09/2014 and got 08/2017. Involved at : FOMatt will be involved with the nb Employment: CHRISTIANO is partner in a [employer] company in [place]. FOB said that his time off is ?fluid? and that for their first child he took 3 weeks off. FOB said that he will take time off as needed. Other Children: TEE?s other child, Giuliana. FOB MH/ AOD/DV: Denied Maternal MH History: TEE reports that she has a history of anxiety. TEE said that in 2016 she was given lorazepam by her MD on a PRN basis and had a 30-day supply and still has a couple of the Lorazepam left. TEE denied any SI/HI. TEE said that she had intrusive thoughts after the of her older child such as walking down the steps that the nb could fall or that the nb would be injured. TEE said that she went to counseling and her friends at work are also a support. TEE said, ?I think mom?s worry about their kids ?and then stated, ?but it doesn?t take over my life?. ?TEE said that she had difficulty with breast feeding and thus pumped for 9 months. MOB said that she felt so guilty when she stopped pumping. TEE said that she went to the MD and the MD told her to ?stop it? and it helped to talk with the MD, and she felt better. TEE said that everyone else was telling her not to feel guilty but when the MD told her to not feel guilty, she felt better. MOB denied any past PPD. MOB and FOB were educated on Shaken Baby Syndrome, PPD and Safe Sleeping. TEE reports no drug use. TEE said that she has wine at dinner and drank as she did not know she was till the nb was 10 weeks in utero. MOB said that when not she is a social drinker. MOB reports no prescription medication use. TEE reports no prescription medication not prescribed to her. TEE completed PHQ-2 with score of 0. provided resource packet for MOB which included telephone and online support for PPD and PPA, resources, counseling, and HMG information. Emotional support provided. Plan: Home at discharge Sanjuana LEYVA
[2022-10-11 19:57] VITALS: BP 99/65; PULSE 81; RESP 16; TEMP 37; O2SAT 99
== END 2022-10-11 20:40 | disposition home or self-care (01) | DRG 807 ==
PROVIDERS: Admitting Provider Advanced Practice Midwife; PCP Internal Medicine; Referring Provider Advanced Practice Midwife; Visit Provider Advanced Practice Midwife
DX: O70.1 Second degree perineal laceration during delivery (principal); Z37.0 Single live birth; O99.344 Other mental disorders complicating childbirth; E03.9 Hypothyroidism, unspecified; F41.9 Anxiety disorder, unspecified; O48.0 Post-term pregnancy; Z3A.40 40 weeks gestation of pregnancy; O69.81X0 Labor and delivery complicated by cord around neck, without compression, not applicable or unspecified; O99.284 Endocrine, nutritional and metabolic diseases complicating childbirth; Z67.91 Unspecified blood type, Rh negative; Z87.59 Personal history of other complications of pregnancy, childbirth and the puerperium
CPT/HCPCS: 59025; 59050; 85025; 85461; 86850; 86900; 86901; 99221; J7120; A4216; G0378; J2405; J2790